=== PATIENT | male | born 1945 | race Two or more races ===

== ENCOUNTER 2019-01-22 19:19 | Inpatient (IN) | payer MEDICAID ==
[~2019-01-22] VITALS: Ht 165.1 cm; Wt 83.1 kg
[~2019-01-22 19:19] MED LIST: AMLO10TA12 PO; APIX2.5T OR; ASPI81TA27 PO; ATOR80TA PO; CALC667C PO; CARV25TA PO; CHOL10009 PO; FURO40TA PO; GABA300C10 PO; INSU70IN3 SC; ISON300T68 PO; PYRI1TAB10 PO
[2019-01-22] MEDS ORDERED: ACETAMINOPHEN 325 MG TAB PO ONE (20:15)
[2019-01-22 23:08] LABS: Basophils # (auto) 0.1 uL; Basophils % (auto) 0.9 % (0.0-2.0); Eosinophils # (auto) 0.1 uL; Hematocrit 34.6 % (41.0-53.0); Hemoglobin 11.3 g/dL (13.5-17.5); Lymphocytes # (auto) 1.8 uL; Lymphocytes % (auto) 17.7 % (10.0-50.0); Mean Corpuscular Hemoglobin 29.7 pg (28.0-32.0); Mean Corpuscular Hgb Conc. 32.7 g/dL (32.0-36.0); Mean Corpuscular Volume 90.9 fL (80.0-100.0); Monocytes % (auto) 9.5 % (0.0-12.0); Neutrophils # (auto) 7.1 uL; Neutrophils % (auto) 70.9 % (37.0-80.0); Nucleated Red Blood Cells % 0.1 %; Platelet Count (auto) 171 10^3/uL (140-450); Red Blood Cells 3.81 10^6/uL (4.5-5.90); Red Cell Distribution Width 16.1 % (11.8-14.3)
[2019-01-22 23:26] LABS: BUN/Creatinine Ratio 12.3; Calcium 7.8 mg/dL (8.5-10.1); Magnesium 2.6 mg/dL (1.6-2.6); Potassium 4.3 mmol/L (3.5-5.1)
[2019-01-22] MEDS ORDERED: ALBUTEROL SULF 2.5 MG/0.5ML(0.5%) NEB SOLN NEB ONE (23:30)
[2019-01-22] MEDS ORDERED: IPRATROPIUM BROM 0.5 MG/2.5ML INH SOL NEB ONE (23:30)
[2019-01-22 23:31] LABS: Bilirubin, Total 0.2 mg/dL (0.2-1.0); Total Protein 7.6 g/dL (6.4-8.2)
[2019-01-22] MEDS ORDERED: ALBUTEROL SULF 2.5 MG/0.5ML(0.5%) NEB SOLN ONE (23:48)
[2019-01-22] MEDS ORDERED: IPRATROPIUM BROM 0.5 MG/2.5ML INH SOL ONE (23:48)
[2019-01-23] MEDS ORDERED: SODIUM CHLORIDE 0.9% 500 ML IV ONE (01:15)
[2019-01-23] MEDS ORDERED: MORPHINE SULF INJ 2 MG/ML SYRINGE 1ML IV PRN (06:45)
[2019-01-23] MEDS ORDERED: ONDANSETRON HCL 4 MG/2 ML VIAL IV PRN (06:45)
[2019-01-23] MEDS ORDERED: NITROGLYCERIN 0.4 MG SL TAB SL PRN (06:45)
[2019-01-23] MEDS ORDERED: VANCOMYCIN PER PHARMACY 0 MG IV SCH (06:45)
[2019-01-23] MEDS ORDERED: HYDROcodone-ACET 5/325MG TAB PO PRN (06:45)
[2019-01-23] MEDS ORDERED: DEXTROSE (50%) 50ML SYRG IV PRN (06:45)
[2019-01-23] MEDS: ACCU-CHEK COMFORT CURVE STRIP VI SCH ×4 (07:31→21:39)
[2019-01-23] MEDS: InsuLIN REG 1unit/0.01ml Soln (100units/ml) SC SCH ×4 (07:31→21:39)
[2019-01-23 07:33] LABS: Urine Bacteria NONE SEEN /hpf (None Seen); Urine Blood TRACE /uL (Negative); Urine Specific Gravity 1.015 (1.001-1.035); Urine WBC 1 /hpf (0 - 3)
[2019-01-23] MEDS: LEVOFLOXACIN 500MG 100 ML IV SCH (08:00)
[2019-01-23] MEDS: CALCIUM ACETATE 667 MG CAP PO SCH ×3 (08:00→19:05)
[2019-01-23] MEDS: ACETAMINOPHEN 500 MG TAB PO PRN (08:02)
[2019-01-23] MEDS ORDERED: VANCOMYCIN 1GM/250ML 250 ML IV ONE (10:00)
[2019-01-23] MEDS ORDERED: PATIENTS OWN MEDICATION (Amlodipine Besylate 1 TAB) PO SCH (10:00)
[2019-01-23] MEDS ORDERED: PATIENTS OWN MEDICATION (Gabapentin 300 MG) PO SCH (10:00)
[2019-01-23] MEDS ORDERED: PATIENTS OWN MEDICATION (Carvedilol (Coreg) 1 TAB) PO SCH (10:00)
[2019-01-23] MEDS ORDERED: PANTOPRAZOLE 40 MG/10 ML VIAL IV SCH (10:00)
[2019-01-23] MEDS: APIXABAN 2.5 MG TAB PO SCH ×2 (10:29→21:38)
[2019-01-23] MEDS: ASPirin-EC 81 mg tab PO SCH (10:29)
[2019-01-23] MEDS: amLODIPine BESYLATE 5 MG TAB PO SCH (10:29)
[2019-01-23] MEDS: GABAPENTIN 300 MG CAP PO SCH ×2 (10:29→21:38)
[2019-01-23] MEDS: PANTOPRAZOLE 40 MG/10 ML VIAL IV SCH (10:29)
[2019-01-23] MEDS: CARVEDILOL 12.5 MG TAB PO SCH ×2 (10:29→21:38)
[2019-01-23] MEDS: hydrALAZINE HCL 20 MG/ML VL IV SCH ×3 (11:45→23:57)
--- NOTE | 2019-01-23 15:30 | NUR ---
Telemetry admit from ER ALEJANDRA WILLOUGHBY admitted to Telemetry unit after SBAR received. Patient oriented to Domi Pope, primary RN, room 251B. A/O x4, no s/s of distress or SOB noted, unit policies regarding patient care and visiting hours. Patient now on continuous telemetry monitoring, tele box #40 and telemetry reading on arrival to unit is SR 65. Patient by bedscale and encouraged to call if they need something. All questions and concerns addressed, patient verbalized understanding.
[2019-01-23 16:00] VITALS: BP 129/56
--- NOTE | 2019-01-23 19:55 | NUR ---
assumed care, pt. awake, bahamian speak only, no c/o pain, no sob.
[2019-01-23 21:34] VITALS: BP 150/72
[2019-01-23] MEDS: ATORVASTATIN 20 MG TAB PO SCH (21:38)
[2019-01-23] MEDS: MORPHINE SULF INJ 2 MG/ML SYRINGE 1ML IV PRN (21:40)
[2019-01-23] MEDS ORDERED: PATIENTS OWN MEDICATION (Atorvastatin Calcium (Lipitor) 1 TAB) PO SCH (22:00)
[2019-01-24 05:36] VITALS: BP 137/61
[2019-01-24] MEDS: hydrALAZINE HCL 20 MG/ML VL IV SCH ×3 (05:43→18:00)
[2019-01-24] MEDS: ACCU-CHEK COMFORT CURVE STRIP VI SCH ×4 (06:08→22:07)
[2019-01-24] MEDS: InsuLIN REG 1unit/0.01ml Soln (100units/ml) SC SCH ×4 (06:08→22:07)
[2019-01-24] MEDS: MORPHINE SULF INJ 2 MG/ML SYRINGE 1ML IV PRN (06:17)
[2019-01-24 06:24] LABS: Basophils # (auto) 0 uL; Basophils % (auto) 0.4 % (0.0-2.0); Eosinophils # (auto) 0.2 uL; Lymphocytes # (auto) 1.5 uL; Lymphocytes % (auto) 20.7 % (10.0-50.0); Monocytes # (auto) 0.7 uL; Monocytes % (auto) 10.2 % (0.0-12.0); Neutrophils # (auto) 4.7 uL; Neutrophils % (auto) 65.7 % (37.0-80.0); Red Blood Cells 3.55 10^6/uL (4.5-5.90); White Blood Cell 7.2 10^3/uL (4.4-10.8)
[2019-01-24 06:25] LABS: Hematocrit 32.2 % (41.0-53.0); Hemoglobin 10.8 g/dL (13.5-17.5); Mean Corpuscular Hemoglobin 30.5 pg (28.0-32.0); Mean Corpuscular Hgb Conc. 33.7 g/dL (32.0-36.0); Mean Corpuscular Volume 90.6 fL (80.0-100.0); Platelet Count (auto) 161 10^3/uL (140-450)
[2019-01-24 06:39] LABS: BUN/Creatinine Ratio 16.2; Calcium 8.3 mg/dL (8.5-10.1); Magnesium 2.7 mg/dL (1.6-2.6); Potassium 4.5 mmol/L (3.5-5.1)
[2019-01-24] MEDS ORDERED: SODIUM CHL 0.9% 1000 ML BAG XX ONE (07:00)
[2019-01-24 07:47] VITALS: BP 137/61
[2019-01-24 08:46] VITALS: BP 144/62
[2019-01-24] MEDS: GABAPENTIN 300 MG CAP PO SCH ×2 (09:00→21:54)
[2019-01-24] MEDS: PANTOPRAZOLE 40 MG/10 ML VIAL IV SCH (09:00)
[2019-01-24] MEDS: ASPirin-EC 81 mg tab PO SCH (09:01)
[2019-01-24] MEDS: CALCIUM ACETATE 667 MG CAP PO SCH ×3 (09:01→18:38)
[2019-01-24] MEDS: APIXABAN 2.5 MG TAB PO SCH ×2 (09:01→21:54)
[2019-01-24] MEDS: CARVEDILOL 12.5 MG TAB PO SCH ×2 (10:00→21:56)
[2019-01-24] MEDS: amLODIPine BESYLATE 5 MG TAB PO SCH (10:00)
[2019-01-24] MEDS: ACETAMINOPHEN 500 MG TAB PO PRN (10:33)
[2019-01-24 12:47] VITALS: BP 150/66
[2019-01-24] MEDS ORDERED: VANCOMYCIN 1GM/250ML 250 ML IV ONE (16:00)
[2019-01-24 16:47] VITALS: BP 147/112
--- NOTE | 2019-01-24 18:50 | NUR ---
Called [facility] [phone] and spoke to Jj, informed him that patient has not received dialysis as ordered by Dr. Brannon for today, verbalized that they will call back and verify that patient is on the schedul, provided Jj with call back number,
--- NOTE | 2019-01-24 19:11 | NUR ---
All BP medications held, awaiting for dialysis, current bp is 150/66. Informed NOC nurse about D/C orders after patient receives dialysis.
--- NOTE | 2019-01-24 20:35 | NUR ---
DR MÉNDEZ CALLED SPOKE WITH DR MÉNDEZ. HE STATED THAT [facility] HAD PAGED HIM REGARDING DIALYSIS TONIGHT FOR PATIENT, AND THAT HE WAS NOT THE REPRODUCTION ARTIST THAT HAD SEEN THIS PATIENT. INFORMED DR MÉNDEZ THAT DR LING HAD THE PATIENT AND DID NOT UNDERSTAND WHY [facility] HAD PAGED HIM. DR MÉNDEZ THEN STATED THAT HE WOULD INITIATE PLACING THIS PATIENT ON THE LIST FOR DIALYSIS IN THE MORNING AND THAT MAYBE DR LING HAD FORGOT TO PLACE HIM ON THE LIST. HE STATED THAT HE CAN NOT GET SOMEONE TO COME OUT AT THIS TIME.
--- NOTE | 2019-01-24 20:35 | NUR ---
NO CALL BACK RECEIVED FOR DIALYSIS CALLED THE NUMBER FOR THE [facility] THAT DAY SHIFT RN PARTH REPORTED [phone]. SPOKE WITH WILDER. INFORMED WILDER THAT NO RETURN CALL HAD BEEN RECEIVED YET ON THE STATUS OF PATIENT GETTING DIALYSIS [place]. WILDER STATED THAT THIS WAS [facility] DIALYS[facility], BUT THAT SHE WOULD HAVE HAVE THE CLEANING MAID DIALYSIS NURSE CALL ME BACK. AWAITING CALL BACK.
[2019-01-24 21:00] VITALS: BP 176/67
[2019-01-24] MEDS: ATORVASTATIN 20 MG TAB PO SCH (22:05)
--- NOTE | 2019-01-24 23:52 | NUR ---
OPENING NOTE ASSUMED CARE OF PATIENT FROM DAY SHIFT ALICIA ALBA. PATIENT IS RESTING IN BED A&O X4 AT THIS TIME WITH NO S/S OF SOB/DISTRESS. BED IS IN LOWEST POSITION/LOCKED, SIDE RAILS UP X2, CALL LIGHT WITHIN REACH, AND BED ALARM ON. INSTRUCTED PATIENT TO CALL FOR ASSISTANCE. DISCUSSED POC WITH PT. PT VERBALIZED UNDERSTANDING. WILL CONTINUE TO MONITOR Q 1HR AND PRN. Addendum: 01/24/19 at 2355 by DARRYL STEVENS RN RN WRONG TIME. RIGHT TIME 1929. HANS RAINEY ASSISTED NURSE TO EXPLAIN POC TO PATIENT
[2019-01-25] MEDS: hydrALAZINE HCL 20 MG/ML VL IV SCH ×2 (00:27→06:00)
[2019-01-25] MEDS ORDERED: CARB200T4 PO (03:39)
[2019-01-25] MEDS ORDERED: LOSA25TA40 PO (03:39)
[2019-01-25] MEDS ORDERED: B-CO-5 OR (03:39)
[2019-01-25 05:00] VITALS: BP 134/61
[2019-01-25] MEDS: LEVOFLOXACIN 500MG 100 ML IV SCH (06:15)
--- NOTE | 2019-01-25 06:19 | NUR ---
CONFIRMATION FOR DIALYSIS TODAY CALLED AND SPOKE WITH KWAKU AT [facility] [place]. KWAKU STATED THAT PATIENT IS ON THE LIST FOR DIALYSIS TODAY. THE NURSE THAT WILL DO DIALYSIS IS EMIGDIO. KWAKU ALSO STATED THAT SHE COULD NOT GUARANTEE A TIME BECAUSE IT IS BASED ON PRIORITY ACCORDING TO LABS ECT.
--- NOTE | 2019-01-25 06:30 | NUR ---
LIAO RETURNED CALL INFORMED LIAO THAT PATIENT IS HAVING FREQUENT PVC'S/BIGEMINEY, AND THAT PATIENT REPORTS NO CHEST PAIN OR DIZZINESS. VITALS SIGNS ARE IN NORMAL BASE LINE RANGE. ORDERS RECEIVED TO CONTINUE TO MONITOR.
[2019-01-25] MEDS: InsuLIN REG 1unit/0.01ml Soln (100units/ml) SC SCH ×2 (06:33→11:49)
[2019-01-25] MEDS: ACCU-CHEK COMFORT CURVE STRIP VI SCH ×2 (06:33→11:30)
--- NOTE | 2019-01-25 07:08 | NUR ---
CLOSING NOTE TRANSFERRED CARE TO DAY SHIFT ALICIA ALBA. PATIENT IS RESTING IN BED A&O X4 AT THIS TIME WITH NO S/S OF SOB/DISTRESS. BED IS IN LOWEST POSITION/LOCKED, SIDE RAILS UP X2, CALL LIGHT WITHIN REACH, AND BED ALARM ON.
[2019-01-25 07:47] VITALS: BP 142/74
--- NOTE | 2019-01-25 07:58 | NUR ---
Opening Shift Note Assumed care of patient, awake and alert. No S/S of distress/SOB or pain. Dialysis nurse at bedside. Call light on within reach, instructed on POC and to call for assist PRN, will continue to monitor for changes Q1hr and PRN.
[2019-01-25 08:47] VITALS: BP 133/56
[2019-01-25 09:22] VITALS: BP 142/74
[2019-01-25] MEDS: amLODIPine BESYLATE 5 MG TAB PO SCH (10:00)
[2019-01-25] MEDS: PANTOPRAZOLE 40 MG/10 ML VIAL IV SCH (10:00)
--- NOTE | 2019-01-25 10:50 | NUR ---
POST DIALYSIS PATIENT A/O X4, NO DISTRESS OR SOB NOTED. VITALS FOLLOWS: T 98.0, HR 86, sPO2 96% ON ROOM AIR, BP 117/53.
[2019-01-25] MEDS: CARVEDILOL 12.5 MG TAB PO SCH (11:48)
[2019-01-25] MEDS: APIXABAN 2.5 MG TAB PO SCH (11:48)
[2019-01-25] MEDS: GABAPENTIN 300 MG CAP PO SCH (11:48)
[2019-01-25] MEDS: ASPirin-EC 81 mg tab PO SCH (11:49)
[2019-01-25] MEDS: CALCIUM ACETATE 667 MG CAP PO SCH ×2 (11:49→12:00)
[2019-01-25 13:00] VITALS: BP 117/53
== END 2019-01-25 12:00 | disposition home or self-care (01) | DRG 420 ==
LOC: ER 19:19 → EDUNIT# 19:19 → EDBD 19:19 → TELE 01-23 06:54 → TELE-EAST 01-23 16:05
PROVIDERS: ADMIT Nurse Practitioner Acute Care; ATTEND Internal Medicine
PROC: 5A1D70Z Performance of Urinary Filtration, Intermittent, Less than 6 Hours Per Day (ICD-10-PCS; principal; 2019-01-25)
DX: E11.65 Type 2 diabetes mellitus with hyperglycemia (principal); I13.2 Hypertensive heart and chronic kidney disease with heart failure and with stage 5 chronic kidney disease, or end stage renal disease; E11.649 Type 2 diabetes mellitus with hypoglycemia without coma; E11.22 Type 2 diabetes mellitus with diabetic chronic kidney disease; E44.1 Mild protein-calorie malnutrition; N18.6 End stage renal disease; I50.43 Acute on chronic combined systolic (congestive) and diastolic (congestive) heart failure; D63.8 Anemia in other chronic diseases classified elsewhere; E66.01 Morbid (severe) obesity due to excess calories; J44.9 Chronic obstructive pulmonary disease, unspecified; E78.5 Hyperlipidemia, unspecified; I25.10 Atherosclerotic heart disease of native coronary artery without angina pectoris; Z95.1 Presence of aortocoronary bypass graft; Z99.2 Dependence on renal dialysis; Z79.01 Long term (current) use of anticoagulants; Z79.4 Long term (current) use of insulin; Z79.82 Long term (current) use of aspirin; Z83.3 Family history of diabetes mellitus; Z68.30 Body mass index [BMI] 30.0-30.9, adult
CPT/HCPCS: 36415; 71045; 80048; 80053; 80202; 81001; 82962; 83605; 83735; 84484; 85025; 87040; 87081; 87804; 90935; 93005; 94640; 96361; 96365; 96375; C9113; G0378; J1642; J1815; J1956

== ENCOUNTER 2020-08-10 10:19 | Emergency (ER) | payer MEDICAID ==
[~2020-08-10] VITALS: Ht 165.1 cm; Wt 79.4 kg
[~2020-08-10 10:19] MED LIST changes: +ALBUAER3 IN; -AMLO10TA12 PO; -APIX2.5T OR; -ASPI81TA27 PO; -ATOR80TA PO; +B-CO-5 OR; +CLOP75TA41 PO; +DEXT1SYP9 PO; +FURO1TAB31 PO; -FURO40TA PO; -INSU70IN3 SC; -ISON300T68 PO; +LEVO250T69 PO; +LOSA25TA38 PO; +PANT40T PO; -PYRI1TAB10 PO; +SUCR1SUS10 PO; +TAMIF30 PO
[2020-08-10 11:07] LABS: Basophils # (auto) 0 10 ^3/uL (0-0.2); Basophils % (auto) 0.5 % (0.0-2.0); Eosinophils # (auto) 0.2 10 ^3/uL (0-0.8); Eosinophils % (auto) 3.3 % (0.0-7.0); Hematocrit 31.4 % (41.0-53.0); Hemoglobin 10.2 g/dL (13.5-17.5); Lymphocytes # (auto) 1.4 10 ^3/uL (0.4-5.4); Lymphocytes % (auto) 19.3 % (10.0-50.0); Mean Corpuscular Hemoglobin 31.1 pg (28.0-32.0); Mean Corpuscular Hgb Conc. 32.5 g/dL (32.0-36.0); Mean Corpuscular Volume 95.9 fL (80.0-100.0); Monocytes # (auto) 0.6 10 ^3/uL (0-1.3); Monocytes % (auto) 8.3 % (0.0-12.0); Neutrophils # (auto) 4.8 10 ^3/uL (1.6-8.6); Neutrophils % (auto) 68.6 % (37.0-80.0); Nucleated Red Blood Cells % 0.1 %; Platelet Count (auto) 293 10^3/uL (140-450); Red Blood Cells 3.28 10^6/uL (4.5-5.90); Red Cell Distribution Width 17.1 % (11.8-14.3)
[2020-08-10 11:22] LABS: INR 1.24 (0.9-1.15); Partial Thromboplastin Time 25.9 sec (23.0-31.2)
[2020-08-10 13:45] LABS: Albumin 3.3 g/dL (3.4-5.0); Calcium 7.7 mg/dL (8.5-10.1); Potassium 4.3 mmol/L (3.5-5.1)
[2020-08-10 13:50] LABS: BUN/Creatinine Ratio 10.2; Bilirubin, Total 0.9 mg/dL (0.2-1.0); Total Protein 7.4 g/dL (6.4-8.2)
[2020-08-10 16:51] VITALS: BP 129/49
== END 2020-08-10 13:20 | disposition short-term general hospital (02) ==
LOC: EDBD 10:19 → ER 10:19 → EDUNIT# 10:19 → ER 13:20
DX: I12.0 Hypertensive chronic kidney disease with stage 5 chronic kidney disease or end stage renal disease (principal); N18.6 End stage renal disease; Z99.2 Dependence on renal dialysis
CPT/HCPCS: 36415; 71045; 80053; 83880; 84484; 85025; 85610; 85730; 93005